=== PATIENT | male | born 1960 | race Caucasian/White ===

== ENCOUNTER 2016-04-28 04:48 | Emergency (ER) | payer OTHER ==
[2016-04-28 05:12] LABS: Urine Bilirubin Negative (NEGATIVE); Urine Blood 250 /ul (NEGATIVE); Urine Ketone 15 mg/dL (NEGATIVE); Urine Nitrite Negative (NEGATIVE); Urine Protein 30 mg/dL (NEGATIVE); Urine Specific Gravity 1.025 SP.GR. (1.005-1.030); Urine Urobilinogen Normal (NORMAL)
[2016-04-28 05:16] LABS: Urine Appearance Cloudy; Urine Color Brown
[2016-04-28 05:21] LABS: Urine Amorphous Sediment Few - 1+ (NONE-FEW); Urine Bacteria None Seen; Urine Mucus Moderate - 2+; Urine RBC >50 /hpf (0-5)
--- NOTE | 2016-04-28 05:23 | ERNOTE ---
ER Male HPI Date of Service: 04/28/16 Stated Complaint: KIDNEY STONE ER Male: other - Flank pain Time Seen by Provider: 04/28/16 05:18 Source: patient, family - spouse Exam Limitations: no limitations Immunizations: IMMUNIZATION HX Immunizations Up to Date Yes History of Influenza Vaccine No Hx Pneumococcal Vaccination No Allergies/Adverse Reactions: Allergies No Known Allergies Allergy (Unverified 09/02/13 07:07) Home Medications: HOME MEDICATIONS Ketorolac Tromethamine [Toradol] 10 mg PO Q6H PRN #20 tab 04/28/16 [Last Taken Unknown] Oxycodone HCl/Acetaminophen [Percocet 5-325 mg Tablet] 1 tab PO Q4H PRN #24 tablet 04/28/16 [Last Taken Unknown] Sulfamethoxazole/Trimethoprim [Bactrim Ds] 1 tab PO BID #14 tab 04/28/16 [Last Taken Unknown] Tamsulosin HCl [Flomax] 1 cap PO DAILY #7 capsule 04/28/16 [Last Taken Unknown] - History of Present Illness Date (Duration): 04/28/16 Timing: Present: constant Quality: Present: severe, aching, stabbing Onset Location: Present: right flank Radiation: Present: groin Activities at Onset: Present: sleep Prior Abdominal Problems: Present: none Sexual [place] History: Present: single partner Modifying Factors - (Improves): Present: analgesics Associated Symptoms: Present: low back pain. Absent: fever/chills, diaphoresis , nausea, vomiting, abdominal pain, dysuria, urinary frequency, polyuria, loss of bladder control, mass, nocturia Review of Systems - Review of Systems Constitutional: Present: no symptoms reported EYE: Present: no symptoms reported ENT: Present: no symptoms reported Respiratory: Present: no symptoms reported Cardiology: Present: no symptoms reported Gastrointestinal/Abdominal: Present: no symptoms reported Genitourinary: Present: no symptoms reported Musculoskeletal: Present: See HPI, back pain Skin: Present: no symptoms reported Neurological: Present: no symptoms reported Endocrine: Present: no symptoms reported Hematologic/Lymphatic: Present: no symptoms reported Psych: Present: no symptoms reported All Other Systems: All systems neg except as marked - Patient's Past Medical History Patient History - Medical: Kidney stone Patient History - Cardiac/Respiratory: No pertinent hx Patient History - Cancer: No Hx of Cancer Patient History - Surgical Procedures: No surgical history Patient History - Other: None - Social History Living Situations: spouse Abuse History: No History of abuse Psych History: No pertinent hx Smoking Status: Never smoker Do you dip or chew tobacco: No Alcohol Use: none Drug Use: none - Immunizations Immunizations Up to Date: Yes Hx Pneumococcal Vaccination: No History of Influenza Vaccine: No Physical Exam - Physical Exam General Appearance: Present: wd/wn, alert, mild distress - Due to pain Respiratory: Present: no respiratory distress, normal breath sounds, no accessory muscle use, chest nontender, lungs clear Cardiovascular/Chest: Present: regular rate, rhythm, no murmur, normal peripheral pulses Gastrointestinal/Abdominal: Present: normal bowel sounds, nontender, nondistended, soft, no organomegaly Back Exam: Present: normal range of motion, CVA tenderness (R) - Right flank TTP Neurological Exam: Present: alert, oriented, normal mood/affect Skin Exam: Present: normal color, warm/dry ED Progress - Results and Orders Patient's Lab Results:: I have reviewed the patient's lab results. - Vital Signs Patient's Vital Signs:: I have reviewed the patient's vital signs. Vital Signs: Vital Signs 04/28/16 04:53 Temperature 35.9 C L Pulse Rate 58 L Respiratory 14 Rate Blood Pressure 122/77 O2 Sat by Pulse 98 Oximetry - CT/Ultrasound CT/Ultrasound Narrative: CT stone protocol (abd/pelvis w/o con) obtained: report indicates a 5mm stone at right UPJ; no mention of hydronephrosis. - Progress/Reassessment Chief Complaint: Genitourinary Problem Progress:: Improved Departure Clinical Impression: Kidney stone on right side Urinary tract infection Qualifiers: Urinary tract infection type: site unspecified Hematuria presence: with hematuria Qualified Code(s): N39.0 - Urinary tract infection, site not specified - Departure Disposition: Home self-care Condition: Good Instructions: Kidney Stones, [id number], Urinary Tract Infection, Adult, Easy -to-Read Additional Instructions: Call urology clinic this morning for follow up appointment. Take medication as prescribed. Strain all urine stream with strainer. Prescriptions: Ketorolac Tromethamine [Toradol] 10 mg PO Q6H PRN #20 tab PRN Reason: Pain Oxycodone HCl/Acetaminophen [Percocet 5-325 mg Tablet] 1 tab PO Q4H PRN #24 tablet PRN Reason: Pain Sulfamethoxazole/Trimethoprim [Bactrim Ds] 1 tab PO BID #14 tab Tamsulosin HCl [Flomax] 1 cap PO DAILY #7 capsule
[2016-04-28] MEDS ORDERED: TAMSULOSIN HCL 0.4 MG CAP.SR.24H PO ONE ×2 (06:01→06:09)
[2016-04-28 06:50] VITALS: BP 122/70
== END 2016-04-28 06:47 | disposition home or self-care (01) ==
LOC: ER 04:48
DX: N20.0 Calculus of kidney (principal); N39.0 Urinary tract infection, site not specified

== ENCOUNTER 2016-05-07 12:58 | Day surgery (SDC) | payer OTHER ==
[~2016-05-07 12:58] MED LIST: KETOROLAC TROMETHAMINE 15 MG/ML VIAL IV PRN; METOCLOPRAMIDE HCL 5 MG/ML VIAL IV PRN; MORPHINE SULFATE 2 MG/ML DISP.SYRIN IV PRN; ONDANSETRON HCL/PF 2 MG/ML VIAL IV PRN; OXYBUTYNIN CHLORIDE 5 MG TABLET PO PRN; oxyCODONE HCL/ACETAMINOPHEN 1 TAB TABLET PO PRN
[2016-05-07] MEDS ORDERED: ceFAZolin SODIUM 2 GM in DEXTROSE 5 % IN WATER 50 ML IV PRN ×2 (13:26)
[2016-05-07] MEDS ORDERED: NORMAL SALINE 1,000 ML IV PRN (13:27)
--- NOTE | 2016-05-07 15:06 | OR ---
Operative Report - Dictated Report Narrative: Location: Main OR Anesthesia: General Surgeon: Dr. Hightower Preoperative diagnosis: Right proximal ureteral stone(s) Postoperative diagnosis: Same, possible subclinical right EJ narrowing/ tortuosity/kinking. Meatal stenosis, proximal urethral subclinical narrowing. Procedure: #1 [place] sound dilation to 24 [place], Cystoscopy with right retrograde pyelograms #2 Right stone manipulation without removal and placement of a 6x26 double j stent Indications: 55-year-old male with symptomatic right proximal ureteral calculus. Discussed options and elected to proceed with the above-mentioned procedure. Description: Consent obtained. Patient brought to the operating room where general endotracheal anesthesia was induced. Placed in the dorsal lithotomy position. Prepped and draped. Timeout taken. Urethral meatus would not accommodate scope. Dre sounds used to dilate 24 [place] without any difficulty. 21 [place] sheath introduced without any difficulty. Scope navigated towards the bladder. The proximal urethra had a slight narrowing, slight abnormality also as if he has had prior catheter catheter trauma. I was able to bypass and get in the bladder fairly easily. Not a lot of BPH with obstruction and no obstructive change. Right retrograde obtained and interpreted by Dr. Campa. Right ureter identified intubated with 5 [place] catheter and right retrograde obtained. Distal and mid ureter without hydronephrosis or filling defects, fairly normal caliber except for the intermural portion, proximally shadowing filling defect in the proximal ureter consistent with known location of stone. Proximal to this ureter was dilated and there is an area of kinking/tortuosity/ possible subclinical narrowing. Bentson wire advanced however I met resistance at the level of the stone. 5 [place] catheter migrated proximally and after couple attempts I was able to get by the stone but then had some trouble with the UPJ. 5 [place] catheter used to bump stone proximally with prompt drainage of hydronephrotic blood-tinged urine. Wire removed a injected additional contrast outlining more of the collecting system to make sure I was in the appropriate location which was the case. Upper collecting system was blunted and hydronephrotic. Pretty sure I could see the stone floating around in the renal pelvis from the manipulation. Bentson wire reintroduced. 5 [place] catheter removed. 6 x 26 double-J stent deployed. Specimen: None EBL: 0 ml Condition: tolerated procedure Important findings: Tight intramural ureter, proximal ureteral calculus post successful manipulation and stenting, slightly abnormal right UPJ suspect subclinical. Meatal narrowing, slightly abnormal proximal urethra. Metallic densities in the right lower quadrant. Not sure as to their clinical significance Follow-up: Plan is to see him next Thursday for cystoscopy with right stent removal, right flexible ureteroscopy with laser/basket, possible stent replacement. If miserable may have to move up to sooner.
[2016-05-07] MEDS ORDERED: ASPIRIN/ACETAMINOPHEN/CAFFEINE 1 TAB TAB PO PRN (15:39)
[2016-05-07 16:35] VITALS: BP 159/94
== END 2016-05-07 12:59 | disposition home or self-care (01) ==
LOC: AMB 12:58
PROVIDERS: ATTEND Urology
PROC: 0T768DZ Dilation of Right Ureter with Intraluminal Device, Via Natural or Artificial Opening Endoscopic (ICD-10-PCS; 2016-05-07)
PROC: BT1DZZZ Fluoroscopy of Right Kidney, Ureter and Bladder (ICD-10-PCS; 2016-05-07)
PROC: 0WHR8YZ Insertion of Other Device into Genitourinary Tract, Via Natural or Artificial Opening Endoscopic (ICD-10-PCS; 2016-05-07)
PROC: 0T7D7ZZ Dilation of Urethra, Via Natural or Artificial Opening (ICD-10-PCS; principal; 2016-05-07 14:20)
DX: N20.1 Calculus of ureter (principal); N35.9 Urethral stricture, unspecified

== ENCOUNTER 2016-05-14 11:40 | Day surgery (SDC) | payer OTHER ==
[~2016-05-14 11:40] MED LIST changes: +MORPHINE SULFATE 4 MG/ML SYRG IV PRN; +NORMAL SALINE 1,000 ML IV PRN; +ceFAZolin SODIUM 2 GM in DEXTROSE 5 % IN WATER 50 ML IV PRN
[2016-05-14] MEDS ORDERED: NORMAL SALINE 1,000 ML IV ONE (12:14)
--- NOTE | 2016-05-14 14:42 | OR ---
Operative Report - Dictated Report Narrative: Location: Main OR Anesthesia: General Surgeon: Dr. Hightower Preoperative diagnosis: Right ureteral stone(s) Postoperative diagnosis: Same Procedure: #1 Cystoscopy with removal of previously placed right double-J stent #2 Right flexible ureteroscopy with holmium laser lithotripsy and placement of a 5 by multi length double j stent Indications: 55-year-old male with symptomatic 5 mm proximal ureteral stone post manipulation and stenting. On CT also had a small 2 mm reported stone. Description: Consent obtained. Patient brought to the operating room where general endotracheal anesthesia was induced. Placed in the dorsal lithotomy position. Prepped and draped. Timeout taken. Urethra required dilation with [place] sounds again to 24 [place]. I used a 21 [place] sheath and was able to intubate after dilation and navigated proximally. He had the same prostatic subclinical narrowing which required some gentle pressure to navigate past. Upon entering bladder there was some organized clots near the stent with stent was easily identifiable grasped pulled per urethra. Super Stiff wire advanced through the stent. Dual Lumen catheter then advanced the mid ureter without any resistance followed by placement of a Bentson wire [place] wire secured as safety wire. Over the Super Stiff wire flexible ureteroscope navigated proximally. Kidney was entered and Danielle nephroscopy was carried out. In the upper pole calyx I identified what appeared to be the 5 mm stone. I did not identify 2 mm stone in any of the other calyces. 200 micron laser fiber was used. Energy of 0.3-0.6 joules and a rate of 40 hertz was used to fragment the stone into submillimeter pieces. Stone fragmented well and so I hovered additionally and fragmented further. I would say at conclusion of case no fragments should be over 1 or 2 mm at best. It was a little tricky to stay right on stone secondary to location. I injected contrast and all calyces just to make sure that this was indeed the 5 mm stone and saw no filling defects that were concerning for stone in the upper collecting system. There is a calyx that points straight posteriorly or anteriorly after contrast injection which I can only enter briefly. There is no filling defects. I would say it would be extraordinarily unlucky if there was a 5 mm stone hiding behind that lip. I flushed syringe and did not see stone. There was a small organized clot in the renal pelvis I used the laser to fragment that further and make sure no stone hiding within that. I performed a final Danielle nephroscopy and I saw no additional stones. Everything looked well fragmented. There was a little bit of mucosal oozing from the dilation used with pressurized saline short of that everything looked good. Scope was withdrawn down the ureter slowly and caliber was good all the way until the distal third where he narrow down just a little bit but I think will be okay with the size of the fragments that remained provided they cooperate. There was some additional mucosal ooze from the ureter and so given the oozing and the organized clot I felt that was in his best interest to go ahead and re- stent to at least allow the bleeding to subside and dissolved before finally removing the stent Bladder was drained and I did obtain a stone crystal which was sent for analysis hopefully that is enough EBL: 0 Specimen: Stone fragment Condition: tolerated procedure Important findings: Successfully treated right renal stone that appeared to be the 5 mm stone. Never did encounter the 2 mm stone unless they were both legs together when the fragmentation started. Normal post surgery retrograde with the exception of some pyelovenous backflow. Successful 5 [place] stenting Follow-up: I will see him next Thursday in FM or flexible cystoscopy and stent removal with IV sedation. If miserable can move up the possibly Thursday with Dr. Villafuerte if he is interested.
[2016-05-14] MEDS ORDERED: HYDROmorphone HCL 2 MG TABLET PO ONE (16:30)
[2016-05-14 16:44] VITALS: BP 136/79
[2016-05-20 01:00] LABS: Stone Composition 2 DNR
== END 2016-05-14 11:41 | disposition home or self-care (01) ==
LOC: AMB 11:40
PROVIDERS: ATTEND Urology
PROC: 0T778DZ Dilation of Left Ureter with Intraluminal Device, Via Natural or Artificial Opening Endoscopic (ICD-10-PCS; 2016-05-14)
PROC: 0TF78ZZ Fragmentation in Left Ureter, Via Natural or Artificial Opening Endoscopic (ICD-10-PCS; principal; 2016-05-14 13:00)
DX: N20.1 Calculus of ureter (principal); Z68.29 Body mass index [BMI] 29.0-29.9, adult

== ENCOUNTER 2016-05-21 11:53 | Day surgery (SDC) | payer OTHER ==
[~2016-05-21 11:53] MED LIST changes: -MORPHINE SULFATE 4 MG/ML SYRG IV PRN; -OXYBUTYNIN CHLORIDE 5 MG TABLET PO PRN; -ceFAZolin SODIUM 2 GM in DEXTROSE 5 % IN WATER 50 ML IV PRN; -oxyCODONE HCL/ACETAMINOPHEN 1 TAB TABLET PO PRN
[2016-05-21] MEDS ORDERED: RINGERS SOLUTION,LACTATED 1,000 ML IV ONE (13:01)
--- NOTE | 2016-05-21 13:22 | OR ---
Operative Report - Dictated Report Narrative: Preoperative diagnosis: Indwelling stent Postoperative diagnosis: Same Anesthesia: IV sedation/Mac Procedure: Flexible cystoscopy with stent removal Indications: Indwelling stent Descritpion: Consent obtained. Patient prepped and drapped. Anesthesia induced. Flexible scope inserted and navigated to bladder. Stent identified, grasped and pulled per urethra. Patient tolerated. EBL: 0 ml Specimen: None Condition: Tolerated procedure Follow-up: I will see the patient back in 6 months with KUB/UA. Sooner if trouble. He is to strain urine obtain fragments and we will send for analysis.
[2016-05-21] MEDS ORDERED: LEVOFLOXACIN 500 MG TABLET PO ONE (13:45)
[2016-05-21 14:30] VITALS: BP 124/76
== END 2016-05-21 11:54 | disposition home or self-care (01) ==
LOC: AMB 11:53
PROVIDERS: ATTEND Urology
PROC: 0TP98DZ Removal of Intraluminal Device from Ureter, Via Natural or Artificial Opening Endoscopic (ICD-10-PCS; principal; 2016-05-21 13:00)
DX: Z46.6 Encounter for fitting and adjustment of urinary device (principal); Z68.29 Body mass index [BMI] 29.0-29.9, adult